=== PATIENT | male | born 1985 | race Two or more races ===

== ENCOUNTER 2024-09-29 00:13 | Emergency (ER) | payer MEDICAID ==
[~2024-09-29] VITALS: Ht 167.6 cm; Wt 87.2 kg
[2024-09-29 01:00] VITALS: BP 136/76; PULSE 83; RESP 14; TEMP 98.5; O2SAT 97
[2024-09-29] MEDS ORDERED: AUG875T PO (01:43)
[2024-09-29] MEDS ORDERED: IBUP-1456 PO (01:43)
--- NOTE | 2024-09-29 01:43 | ED.PDOC ---
HPI Comments Pt reports was replacing his kacie when the knife slipped and cut the base of his left 1st digit. Pt has approximately 1in lac noted in triage, pressure address applied. Denies numbness, weakness, notes last Tdap was aproximally 2 months ago. Chief Complaint: Laceration Time Seen by MD: 00:20 Reviewed Notes: Nurses Notes, Medications, Allergies Allergies: Coded Allergies: NO KNOWN ALLERGIES (Unverified , 09/29/24) Home Meds Active Scripts Ibuprofen (Ibuprofen) 800 Mg Tab, 1 TAB PO TID PRN for 4 Days, #12 TAB Prov:FLORIDALMA PACKER FLARING MACHINE OPERATOR 09/29/24 Amoxicillin & Pot Clavulanate (AUGMENTIN TABLET) 875 Mg Tb, 875 MG PO BID for 5 Days, #10 TAB Prov:FLORIDALMA PACKER FLARING MACHINE OPERATOR 09/29/24 Information Source: Patient Mode of Arrival: Ambulatory Complexity: Simple Laceration Length (cm): 2 Past Medical History PAST MEDICAL HISTORY: Denies Surgical History: Denies all surgeries Family History Family History: Unknown Social History Smoker: Non-Smoker Alcohol: Denies ETOH Use Drugs: Denies Drug Use Constitutional: denies: chills, diaphoresis, fatigue, fever, malaise, sweats, weakness, others EENTM: denies: blurred vision, double vision, ear bleeding, ear discharge, ear drainage, ear pain, ear ringing, eye pain, eye redness, hearing loss, mouth pain, mouth swelling, nasal discharge, nose bleeding, nose congestion, nose pain, photophobia, tearing, throat pain, throat swelling, voice changes, others Respiratory: denies: cough, hemoptysis, orthopnea, SOB at rest, shortness of breath, SOB with excertion, stridor, wheezing, others Cardiovascular: denies: chest pain, dizzy spells, diaphoresis, Dyspnea on exertion, edema, irregular heart beat, left arm pain, lightheadedness, palpitations, PND, syncope, others Gastrointestinal: denies: abdomen distended, abdominal pain, blood streaked bowels, constipated, diarrhea, dysphagia, difficulty swallowing, hematemesis, melena, nausea, poor appetite, poor fluid intake, rectal bleeding, rectal pain, vomiting, others Genitourinary: denies: burning, dysuria, flank pain, frequency, hematuria, incontinence, penile discharge, penile sore, pain, testicle pain, testicle swelling, urgency, others Neurological: denies: dizziness, fainting, headache, left sided numbness, left sided weakness, numbness, paresthesia, pre-existing deficit, right sided numbness, right sided weakness, seizure, speech problems, tingling, tremors, weakness, others Musculoskeletal: denies: back pain, gout, joint pain, joint swelling, muscle pain, muscle stiffness, neck pain, others Integumetry: reports: laceration (Left hand palm aspect laceration); denies: bruises, change in color, change in hair/nails, dryness, lesions, lumps, rash, wounds, others Allergic/Immunocompromised: denies: Difficulty Healing, Frequent Infections, Hives, Itching, others Hematologic/Lymphatic: denies: anemia, blood clots, easy bleeding, easy bruising, swollen glands, others Endocrine: denies: excessive hunger, excessive sweating, excessive thirst, excessive urination, flushing, intolerance to cold, intolerance to heat, unexplained weight gain, unexplained weight loss, others Psychiatric: denies: anxiety, bipolar disorder, depression, hopeless, panic disorder, schizophrenia, sleepless, suicidal, others Physical Exam General Appearance: No Apparent Distress, Normal HEENT: Pharynx Normal Neck: Full Range of Motion, Non-Tender, Normal, Normal Inspection Respiratory: Chest Non-Tender, Lungs Clear, No Accessory Muscle Use, No Respiratory Distress, Normal Breath Sounds Cardiovascular: No Edema, No JVD, No Murmur, No Gallop, Normal Peripheral Pulses, Regular Rate/Rhythm Breast Exam: Deferred Gastrointestinal: No Organomegaly, Non Tender, No Pulsatile Mass, Normal Bowel Sounds, Soft Genitalia: Deferred Pelvic: Deferred Rectal: Deferred Extremities: No calf tenderness, Normal capillary refill, Normal inspection, Normal range of motion, Non-tender, No pedal edema Musculoskeletal : Apperance: Normal Neurologic: Alert, concert singer II-XII nml as Tested, No Motor Deficits, Normal Affect, Normal Mood, No Sensory Deficits Cerebellar Function: Normal Reflexes: Normal Skin: Dry, Lacerations (Left hand anterior palm the base of 1st digit 1/2 inch laceration with a no noted foreign body bleeding controlled), Normal Color, Warm Lymphatic: No Adenopathy Was a procedure done? Was a procedure done?: Yes Sedation Sedation?: No Informed consent obtained: Yes Laceration Repair : Location Left hand palm aspect at base of 1st digit Length 1/2 inch Anesthetic: Lidocaine, Without epi, Digital nerve block Laceration Repair Prep: Saline, Betadine Laceration Repair Wound Comple: epidermis/dermis repair Laceration Repair: Number of sutures (6), Simple Informed consent obtained: Yes Risks, benefits, and alternati: Yes Notes Patient tolerated well with minimal blood loss Differential diagnosis Generic Laceration: Retained Foriegn Body, Tendon Injury, Avulsion X-Ray, Labs, Meds, VS Vital Signs Date Time Temp Pulse Resp B/P (MAP) Pulse Ox O2 Delivery O2 Flow Rate FiO2 09/29/24 01:00 98.5 83 14 136/76 (96) 97 98.5 09/29/24 01:00 83 14 97 Room Air 09/29/24 00:22 98.5 83 14 136/76 (96) 97 98.5 X-Ray, Labs, Meds, VS Comment See procedure note. Script prophylactic antibiotics to patient's pharmacy on file. Take medications as prescribed side effects discussed. Wound re- evaluation in 2 days with PCP urgent care or back here in the ER. Suture removal within 5-7 days. Two months ago up-to-date. Per PT ER return precautions given for uncontrolled bleeding or signs and symptoms of infection numbness or weakness. Patient indicates understanding agrees with discharge plan of care. Time of 1ST Reevaluation: 01:40 Reevaluation 1ST: Improved Patient Education/Counseling: Diagnosis, Treatment, Prognosis, Need For Follow Up Family Education/Counseling: No Family Present Departure 1 Departure Time of Disposition: 01:42 Impression: Primary Impression: Laceration of hand without foreign body Qualified Codes: S61.412A - Laceration without foreign body of left hand, initial encounter Disposition: 01 HOME / SELF CARE / HOMELESS Condition: Stable e-Prescriptions Ibuprofen (Ibuprofen) 800 Mg Tab 1 TAB PO TID PRN for 4 Days, #12 TAB Prov: FLORIDALMA PACKER 09/29/24 Amoxicillin & Pot Clavulanate (AUGMENTIN TABLET) 875 Mg Tb 875 MG PO BID for 5 Days, #10 TAB Prov: FLORIDALMA PACKER 09/29/24 Discharged With: Self Critical Care Note Critical Care Time?: No Stability Stability form required: No FLORIDALMA PACKER Sep 29, 2024 01:43
== END 2024-09-29 01:48 | disposition home or self-care (01) ==
LOC: ER 00:13
DX: S61.412A Laceration without foreign body of left hand, initial encounter (principal); Z79.899 Other long term (current) drug therapy; W26.0XXA Contact with knife, initial encounter; Y93.89 Activity, other specified; Y92.89 Other specified places as the place of occurrence of the external cause; Y99.8 Other external cause status
CPT/HCPCS: 12001; 99283; J2003; 12002